=== PATIENT | female | born 1955 | race Caucasian/White ===

== ENCOUNTER → 2016-10-08 | Outpatient (CLI) | payer OTHER ==
[~2016-10-08] MED LIST: ADVINUNK; ALBUAER2 INH; ALLGUNK; FLNIN NAE; SNG10 PO
--- NOTE | 2016-10-08 14:04 | MAMMOGRAPHY REPORT ---
BILATERAL DIGITAL SCREENING MAMMOGRAM WITH CAD: 10/08/2016 CLINICAL HISTORY: Routine screening. Patient has no complaints. TECHNIQUE: Current study was also evaluated with a Computer Aided Detection (CAD) system. Bilateral CC and MLO views were obtained. COMPARISON: Comparison is made to exams dated: 10/07/2015 mammogram, 10/03/2014 mammogram, 09/[place]/2013 [place], 09/20/2012 mammogram, 08/13/2011 mammogram, and 08/11/2010 mammogram - [facility]. BREAST COMPOSITION: The tissue of both breasts is heterogeneously dense, which may obscure small mas ses. FINDINGS: No suspicious masses, calcifications, or areas of architectural distortion are noted in ei ther breast. There has been no significant interval change compared to prior exams. Scattered bilater al benign-appearing calcifications are not significantly changed. IMPRESSION: ACR BI-RADS CATEGORY 2: BENIGN There is no mammographic evidence of malignancy. A 1 year screening mammogram is recommended. The pa tient will receive written notification of the results. Approximately 10% of breast cancers are not detected with mammography. A negative mammographic report should not delay biopsy if a clinically suggestive mass is present. Brenda Dacosta M.D. /:10/08/2016 09:07:49 Website Optimization Strategist: Glory PHAN(Maggi)(M), [facility] letter sent: Normal 1/2 BI-RADS Code: ACR BI-RADS Category 2: Benign
== END | disposition home or self-care (01) ==
LOC: C.MAMM 08:45
PROVIDERS: ATTEND Family Medicine
DX: Z12.31 Encounter for screening mammogram for malignant neoplasm of breast (principal)

== ENCOUNTER → 2017-01-20 | Outpatient (CLI) | payer OTHER ==
[2017-01-20 10:11] LABS: BASO ABS # 0.06 K/uL (0-0.2); COMPLETE YES; HEMATOCRIT 39.8 % (37-47); IG% 0.2 %; LYMPH % 31.3 %; LYMPH ABS # 1.85 K/uL (1.2-3.4); MEAN CELL VOLUME 87.3 fL (80-100); MEAN CORPUSCULAR HEMOGLOBIN 29.4 pg (25-34); MEAN CORPUSCULAR HGB CONC 33.7 g/dl (32-36); MEAN PLATELET VOLUME 12.3 fL (7.4-10.4); NEUT % 56.5 %; PLATELET COUNT 219 K/uL (130-400); RED BLOOD COUNT 4.56 M/uL (4.2-5.4); WHITE BLOOD COUNT 5.91 K/uL (4.8-10.8)
[2017-01-20 10:54] LABS: ALT/SGPT 27 U/L (12-78); AST/SGOT 18 U/L (15-37); BLOOD UREA NITROGEN 16 mg/dl (7-18); CALCIUM 9.1 mg/dl (8.5-10.1); CARBON DIOXIDE 24 mmol/L (21-32); CHLORIDE 106 mmol/L (98-107); CREATININE 0.74 mg/dl (0.60-1.20); GLUCOSE 81 mg/dl (70-99); POTASSIUM 4.2 mmol/L (3.5-5.1); SODIUM 141 mmol/L (136-145)
[2017-01-20 11:05] LABS: ALKALINE PHOSPHATASE 71 U/L (45-117); CHOLESTEROL 207 mg/dl (0-200); CHOLESTEROL/HDL RATIO 2.7; HDL CHOLESTEROL 76 mg/dl; LDL CHOLESTEROL CALCULATED 105 mg/dl; TRIGLYCERIDES 132 mg/dl (0-150); VERY LOW DENSITY LIPOPROT CALC 26 mg/dl
== END | disposition home or self-care (01) ==
LOC: C.LAB 07:46
PROVIDERS: ATTEND Neuromusculoskeletal Medicine & OMM
DX: Z00.00 Encounter for general adult medical examination without abnormal findings (principal); R53.83 Other fatigue; D64.9 Anemia, unspecified; Z11.59 Encounter for screening for other viral diseases

== ENCOUNTER → 2017-02-09 | Outpatient (CLI) | payer OTHER ==
--- NOTE | 2017-02-09 16:45 | DIAGNOSTIC IMAGING REPORT ---
TWO VIEW CHEST CLINICAL HISTORY: Cough. FINDINGS: PA and lateral chest radiographs are obtained. No prior studies are available for comparison at the time of dictation. The cardiomediastinal silhouette is unremarkable. The lungs and pleural spaces are clear. There is no pneumothorax. The skeletal structures are osteopenic. Degenerative change is noted throughout the thoracic spine. IMPRESSION: No active disease in the chest. Electronically signed by: Clayton De La Vega M.D. 02/09/2017 4:43 PM Dictated Date/Time: 02/09/2017 4:43 PM
== END | disposition home or self-care (01) ==
LOC: C.RAD 16:26
PROVIDERS: ATTEND Nurse Practitioner Adult Health
DX: R05 Cough (principal)

== ENCOUNTER → 2017-02-12 | Outpatient (CLI) | payer OTHER ==
--- NOTE | 2017-02-12 15:55 | ECHOCARDIOGRAM REPORT ---
*NOTICE TO RECEIVING CONSTITUTION PARTY AGENCY This information is strictly Confidential and protected under [place] law. [place] law prohibits you from making any further disclosure of this information unless further disclosure is expressly permitted by the written consent of the person to whom it pertains or is authorized by law. A general authorization for the release of medical or other information is not sufficient for this purpose. Hospital accepts no responsibility if the information is made available to any other person, INCLUDING THE PATIENT. Interpretation Summary * Name: ULYSSES ANDINO Study Date: 02/12/2017 01:40 PM BP: 153/56 mmHg * Patient Location: [facility] HR: 63 * : 1955 (M/d/yyyy) Gender: Female Height: 64 in * Age: 62 yrs Ethnicity: [place] Weight: 160 lb * Ordering Physician: Chilo Ferrer * Referring Physician: Chilo Ferrer D.O. * Performed By: Scarlett Stephens RDCS * * Reason For Study: SYSTOLIC EJECTION MURMUR, FATIGUE * BSA: 1.8 m2 * -- Conclusions -- * Left ventricular systolic function is normal. * No regional wall motion abnormalities noted. * Ejection Fraction = 60-65%. * There is mild mitral regurgitation. Procedure Details * A complete two-dimensional transthoracic echocardiogram was performed (2D, M-mode, Doppler and color flow Doppler). Left Ventricle * The left ventricle is normal in size. * There is normal left ventricular wall thickness. * Ejection Fraction = 60-65%. * Left ventricular systolic function is normal. * No regional wall motion abnormalities noted. Right Ventricle * The right ventricle is normal size. * The right ventricular systolic function is normal as assessed by tricuspid annular plane systolic excursion (TAPSE) (normal >1.5 cm). Atria * The left atrial size is normal. * Right atrial size is normal. * No ASD detected; PFO is not assessed. Mitral Valve * The mitral valve is normal in structure and function. * There is no mitral valve stenosis. * There is mild mitral regurgitation. Tricuspid Valve * The tricuspid valve anatomy is normal. * There is no tricuspid stenosis. * Significant tricuspid regurgitation is absent. Aortic Valve * The aortic valve is not well visualized. * The aortic valve opens well. * No hemodynamically significant valvular aortic stenosis. * There is no significant aortic regurgitation. Pulmonic Valve * The pulmonary valve is not well seen, but the Doppler examination is normal without significant regurgitation or stenosis. Great Vessels * The aortic root is normal size. * The pulmonary is not well visualized. Pericardium/Pleural * There is no pericardial effusion. Great Vessels * Normal inferior vena cava size and collapsability with sniff indicates a normal right atrial pressure of 3 mmHg MMode 2D Measurements and Calculations IVSd 1.2 cm IVSs 1.7 cm LVIDd 4.1 cm LVIDs 2.9 cm LVPWd 1.2 cm LVPWs 1.6 cm IVS/LVPW 1.0 FS 30.3 % EDV(Teich) 74.5 ml ESV(Teich) 31.2 ml EF(Teich) 58.1 % EDV(cubed) 69.2 ml ESV(cubed) 23.5 ml EF(cubed) 66.1 % % IVS thick 46.2 % % LVPW thick 35.6 % LV mass(C)d 162.8 grams LV mass(C)dI 91.5 grams/m\S\2 LV mass(C)s 171.6 grams LV mass(C)sI 96.5 grams/m\S\2 SV(Teich) 43.3 ml SI(Teich) 24.3 ml/m\S\2 SV(cubed) 45.8 ml SI(cubed) 25.7 ml/m\S\2 Ao root diam 2.9 cm Ao root area 6.8 cm\S\2 LVAd ap4 27.0 cm\S\2 LVLd ap4 7.8 cm EDV(MOD-sp4) 77.8 ml EDV(sp4-el) 79.5 ml LVAs ap4 15.0 cm\S\2 LVLs ap4 6.5 cm ESV(MOD-sp4) 29.3 ml ESV(sp4-el) 29.5 ml EF(MOD-sp4) 62.3 % EF(sp4-el) 62.9 % LVAd ap2 23.0 cm\S\2 LVLd ap2 7.5 cm EDV(MOD-sp2) 57.4 ml EDV(sp2-el) 60.0 ml LVAs ap2 13.3 cm\S\2 LVLs ap2 6.7 cm ESV(MOD-sp2) 22.4 ml ESV(sp2-el) 22.5 ml EF(MOD-sp2) 60.9 % EF(sp2-el) 62.4 % LVLd %diff -4.51 % EDV(MOD-bp) 67.0 ml LVLs %diff 3.5 % ESV(MOD-bp) 26.1 ml EF(MOD-bp) 61.1 % SV(MOD-sp4) 48.5 ml SI(MOD-sp4) 27.2 ml/m\S\2 SV(MOD-sp2) 34.9 ml SI(MOD-sp2) 19.6 ml/m\S\2 SV(MOD-bp) 41.0 ml SI(MOD-bp) 23.0 ml/m\S\2 SV(sp4-el) 50.1 ml SI(sp4-el) 28.1 ml/m\S\2 SV(sp2-el) 37.4 ml SI(sp2-el) 21.0 ml/m\S\2 Doppler Measurements and Calculations MV E max froy 96.5 cm/sec MV A max froy 95.4 cm/sec MV E/A 1.0 MV dec time 0.19 sec Ao V2 max 173.6 cm/sec Ao max PG 12.1 mmHg Ao max PG (full) 6.5 mmHg LV V1 max PG 5.6 mmHg LV V1 max 118.0 cm/sec TR max fory 207.1 cm/sec
== END | disposition home or self-care (01) ==
LOC: C.CPL 13:24
PROVIDERS: ATTEND Neuromusculoskeletal Medicine & OMM
DX: R53.83 Other fatigue (principal); R01.1 Cardiac murmur, unspecified

== ENCOUNTER → 2017-10-11 | Outpatient (CLI) | payer OTHER ==
--- NOTE | 2017-10-11 13:08 | MAMMOGRAPHY REPORT ---
BILATERAL DIGITAL SCREENING MAMMOGRAM TOMOSYNTHESIS WITH CAD: 10/11/2017 CLINICAL HISTORY: Routine screening. TECHNIQUE: The study was acquired using full field digital technology and interpreted from soft copy. Breast tomosynthesis in addition to standard 2D mammography was performed. Current study was also ev aluated with a Computer Aided Detection (CAD) system. COMPARISON: Comparison is made to exams dated: 10/08/2016 mammogram, 10/07/2015 mammogram, 10/[place]/2014 [place] [facility], 09/21/2013 mammogram, 09/20/2012 mammogram, and 08/13/2011 mammogram - [facility]. BREAST COMPOSITION: The tissue of both breasts is heterogeneously dense, which may obscure small mass es. FINDINGS: The parenchymal pattern is unchanged. There are scattered bilateral benign rounded rim calcification s. No developing mass, architectural distortion or cluster of suspicious microcalcifications is seen in either breast. IMPRESSION: ACR BI-RADS CATEGORY 2: BENIGN There is no mammographic evidence of malignancy. A 1 year screening mammogram is recommended.( 019) The patient will receive written notification of the results. Some breast cancers are not detected with mammography. A negative mammographic report should not stephani y biopsy if a clinically suggestive mass is present. Rizwana Sheldon M.D. ay/:10/11/2017 09:34:54 Print Journalist: RT Nuno(R)(M), [facility] letter sent: Normal 1/2 BI-RADS Code: ACR BI-RADS Category 2: Benign
== END | disposition home or self-care (01) ==
LOC: C.MAMM 08:44
PROVIDERS: ATTEND Family Medicine
DX: Z12.31 Encounter for screening mammogram for malignant neoplasm of breast (principal)